=== PATIENT | male | born 1995 | race Caucasian/White ===

== ENCOUNTER 2021-12-03 15:47 | Outpatient (CLI) | payer BC, SELFPAY ==
--- NOTE | 2021-12-03 15:30 | DI.RAD_ITS ---
Exam(s) XR KNEE LT 3V AP,LAT,BYRON EXAM: XR KNEE LT 3V AP,LAT,BYRON CLINICAL HISTORY: left knee pain. TECHNIQUE: 2D digital imaging was performed. COMPARISON: CR XR KNEE RT 3V AP,LAT,BYRON from 12/03/2021 FINDINGS: Four views No evidence of fracture or obvious joint effusion. No significant joint space narrowing. There is s ome mild soft tissue swelling anterior to the patellar ligament. IMPRESSION: DATA REPOSITORY: RADIATION DOSE DELIVERED:
--- NOTE | 2021-12-03 15:30 | DI.RAD_ITS ---
Exam(s) XR KNEE RT 3V AP,LAT,BYRON EXAM: XR KNEE RT 3V AP,LAT,BYRON CLINICAL HISTORY: right knee pain. TECHNIQUE: 2D digital imaging was performed. COMPARISON: No exams were available for comparison FINDINGS: Four views: No evidence of fracture or joint effusion. No joint space narrowing. No osteophytes. Bone density normal. No osseous lesions. IMPRESSION: No significant findings. DATA REPOSITORY: RADIATION DOSE DELIVERED:
== END 2021-12-03 15:48 | disposition home or self-care (01) ==
LOC: DIORS 15:47
PROVIDERS: PCP Nurse Practitioner; Referring Provider Nurse Practitioner; Visit Provider Student in an Organized Health Care Education/Training Program
DX: M25.561 Pain in right knee (principal); M25.562 Pain in left knee; R22.42 Localized swelling, mass and lump, left lower limb
CPT/HCPCS: 73562

== ENCOUNTER → 2021-12-31 02:03 | Outpatient (CLI) | payer BC, SELFPAY ==
--- NOTE | 2021-12-31 06:45 | DI.MRI_ITS ---
Exam(s) MR LOWER JOINT LT WO EXAM: MR LOWER JOINT LT WO CLINICAL HISTORY: Abnormal patellar bone growth,ANTERIOR PATELLAR EXOSTOSIS,INTERNAL DERANGE TECHNIQUE: Multiplanar multisequence MRI was performed.. COMPARISON: CR XR KNEE LT 3V AP,LAT,BYRON from 12/03/2021 CR XR KNEE RT 3V AP,LAT,BYRON from 12/03/2021 FINDINGS: MR examination of the knee was performed according to the usual protocol. There is no significant knee joint effusion. No significant bony signal abnormality seen. Medial tibiofemoral joint: The articular cartilage of the femur and tibia appears well maintained. T he meniscus and attachments appear intact. The medial collateral ligament appears intact. No l d rn omedial corner injury seen. Lateral tibiofemoral joint: The articular cartilage of the femur and tibia appears well maintained. The meniscus and attachments appear intact. The lateral collateral ligament complex and posterolater al corner structures appear intact. Patellofemoral joint and extensor mechanism: The articular cartilage of the patellofemoral joint appe ars intact. The superior and inferior patellar fat pads appear normal with no signal abnormality. There is prominent inferior patellar enthesophyte with associated thickening and abnormal signal of t he patellar tendon and abnormal signal at the enthesophyte and to lesser degree in overlying soft tis sues. Note is also made of abnormal signal and mild thickening in the quadriceps attachment on the p atella.. The medial and lateral retinacula appear intact. Cruciate ligaments: Cruciate ligaments and attachments appear normal with no evidence of a tear. Tibiofibular joint: No specific abnormality involving the tibiofibular joint. IMPRESSION: Prominent inferior patellar enthesophyte with associated patellar tendinitis. No evidence patellar t endon rupture.. DATA REPOSITORY:
== END ==
PROVIDERS: PCP Nurse Practitioner; Visit Provider Student in an Organized Health Care Education/Training Program
DX: M76.52 Patellar tendinitis, left knee
CPT/HCPCS: 73721

== ENCOUNTER 2022-02-19 11:28 | Day surgery (SDC) | payer BC, SELFPAY ==
[2022-02-19] VITALS (7 sets, daily range): BP systolic 116–136; BP diastolic 46–99; PULSE 57–79; RESP 16–22; TEMP 36.5–37.1; O2SAT 95–99; BMI 37.0
[2022-02-19] MEDS: Lactated Ringers 1,000 ML 30 ML IV (12:00)
--- NOTE | 2022-02-19 13:05 | W.ANESPRE ---
General Info Date of Service Date Performed: 02/19/22 Height: 5 ft 11 in Weight: 120.3 kg Body Mass Index (BMI): 37.0 Surgical Procedure: Operation Date: 02/19/22 12:40 Proposed Procedure Side Surgeon p Patella Exostosis Excision, Possible Knee Patellar Tendon Repair Left Willy Culp MD Meds Allergies and Home Medications Allergies Allergy/AdvReac Type Severity Reaction Status Date / Time No Known Allergies Allergy Verified 01/07/22 08:33 Home Medication Medication Instructions Recorded ibuprofen 200 mg tablet 200 mg PO Q6H PRN 12/03/21 Current Visit Medications: Current Medications Generic Name Dose Route Start Last Admin Trade Name Freq PRN Reason Stop Dose Admin Ringer's Solution 1,000 mls @ 30 mls/hr 02/19/22 06:00 02/19/22 12:00 IV 03/20/22 23:59 30 mls/hr INFUSION KARLEY Administration Cefazolin Sodium/Dextrose 2 gm in 50 mls @ 100 mls/hr 02/19/22 06:00 Ancef Duplex IVPB 02/19/22 16:00 PREOP KARLEY IV Miscellaneous Supplies 1 each 02/19/22 06:00 Iv Access IV 03/20/22 23:59 DIRECTED KARLEY Oxycodone HCl 0 mg 02/19/22 07:16 Oxycodone 5 Mg Tab PO Q3H PRN PRN Pain Sodium Chloride 0 ml 02/19/22 06:00 Normal Saline Flush 10 Ml Syr IV 03/20/22 23:59 PRN PRN Sodium Chloride 0 ml 02/19/22 06:00 Normal Saline 10 Ml Vial IJ 03/20/22 23:59 DIRECTED PRN Sterile Water 0 ml 02/19/22 06:00 Water,Injection,Sterile 10 Ml Vial IJ 03/20/22 23:59 DIRECTED PRN PFSH Active Problems Active Problems: Problem Status Onset Code 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 Tobacco Smoking/Tobacco Use Status: Never Alcohol Alcohol Intake: current Alcohol intake frequency: a few times a month Alcohol type: beer and hard liquor Substance Use Substance use: Occasionally Substance use type: marijuana Details: Cannabis 2x's q night. Vital Signs and Lab Results Vital Signs Most Recent Vital Signs in EMR: Most Recent Vital Signs Temp Pulse Resp BP Pulse Ox 37.1 C 79 18 136/99 H 97 02/19/22 11:34 02/19/22 11:34 02/19/22 11:34 02/19/22 11:34 02/19/22 11:34 Lab Results Blood Type / Crossmatch: No Data to Display Complete Blood Count: No Data to Display Complete Metabolic Panel: No Data to Display Liver Function Panel: No Data to Display Coagulation Panel: No Data to Display Cardiac Panel: No Data to Display Arterial Blood Gas: No Data to Display Venous Blood Gas: No Data to Display Pancreas Panel: No Data to Display Thyroid Panel: No Data to Display Infectious Disease: No Data to Display Blood Cultures: No Data to Display Toxicology Panel: No Data to Display Anesthesia Assessment and Plan Anesthesia History Personal History: No History of Anesthesia Complications Family History: No Family History of Anesthesia Complications Exercise Tolerance Exercise Tolerance: Metabolic Equivalents>4 Pertinent Negatives Pertinent Negatives: No Symptoms of GERD, No Major Cardiovascular Symptoms or Complaints and No Major Pulmonary Symptoms or Complaints Cardiac & Pulmonary Exam Cardiac Exam: Normal S1/S2 Heart Sounds Pulmonary Exam: Clear Bilateral Breath Sounds Implantable Cardiac Device Does patient have a Pacemaker or an ICD?: No Airway Exam Known Difficult Airway: No Mallampati Class: 1 Mouth Opening: Normal (> 3cm) Thyromental Distance: Greater than 3 cm Neck Range of Motion: Full ROM Neck Circumference: Normal Teeth Condition: Normal Dentition ASA Classification ASA Score: ASA 2 Emergency Case?: No NPO Status NPO Status: NPO Clears >2 hours, Solids >8 hours Anesthesia Plan Resuscitation Status: Full Code Anesthesia Technique: General Anesthesia Airway Planned: LMA Monitors Used: Standard Monitors
[2022-02-19] MEDS: ceFAZolin 2 GM/50 ML BAG IVPB (13:53)
--- NOTE | 2022-02-19 14:00 | ROE_ITS ---
Date of service: 02/19/22 Time of Service: 16:30 Operative Note Operative Note DATE OF PROCEDURE: 02/19/22 PRE-OP DIAGNOSIS: Left knee symptomatic patellar exostosis POST-OP DIAGNOSIS: same PROCEDURE: Left knee excision patellar exostosis, CPT #44218 SURGEON: Willy Culp [employer]ER: None None ANESTHESIA TYPE: Local By Surgeon and General LMA/ETT Refer to Anesthesia Record ESTIMATED BLOOD LOSS: 3 COMPLICATIONS: None Patient was transported to: PACU Patient's condition: stable Indications: Please see complete medical record for details. Procedure Description: In the operating room, general anesthesia was induced. The patient was positioned supine on the operating room table. All bony prominences were well- padded. Preoperative antibiotics were administered. The left knee was prepped and draped in the usual sterile fashion. The correct patient, procedure, and side of the procedure were all verified prior to incision. The obvious bony anterior and inferior patellar exostosis was palpated. A small longitudinal approach was pretty injected with 0.5% bupivacaine with epinephrine. The incision was made through the skin down to the prepatellar bursa which was removed over the area of obvious bony prominence with a rongeur. An elevator was used to raise periosteum around the margins of the lesion. Distally a small amount of most anterior expansion patellar tendon fibers were split and elevated as well. A rongeur was used to remove the majority of the bony prominence. A combination of rongeur, elevator, and rasp were then used to thoroughly smooth the lesion bed and remove any additional prominence. There was no significant patellar tendon involvement. The site was copiously irrigated normal saline. The patellar tendon few fibers were repaired using 0 Vicryl. 2-0 Monocryl was used to close subcutaneous tissue. 3-0 Monocryl running skin followed by skin glue and Mepilex bandage. A gentle compressive Taj bandage was applied about the knee The patient awoke from anesthesia without complication and was transferred to the recovery room in a stable condition.
[2022-02-19] MEDS: Bupivacaine 0.5% Pres-Free W/EPI 30 ML VIAL (14:13)
--- NOTE | 2022-02-19 15:01 | W.ANESPOSTOP ---
Postoperative Evaluation Date, Time and Location Date Performed: 02/19/22 Time Performed: 15:01 Patient Location: PACU Vital Signs Most Recent Imported Vital Signs: Most Recent Vital Signs Temp Pulse Resp BP Pulse Ox 36.5 C 61 22 135/49 L 97 02/19/22 14:57 02/19/22 14:57 02/19/22 14:57 02/19/22 14:57 02/19/22 14:57 Pain Score Most Recent Pain Score: Most Recent Pain Score Pain Level 0 02/19/22 11:34 Assessment Mental Status: Awake (Alert & Oriented to Patient Baseline) Airway and Respiratory Function: Patent airway with normal (patient baseline) respiratory exam Cardiovascular Function: Hemodynamically Stable Hydration Status: Adequately Hydrated Nausea & Vomiting: No Nausea or Vomiting Pain: Pain is tolerable per patient Peripheral Nerve Block: Patient did not receive a nerve block
--- NOTE | 2022-02-19 16:00 | PDOC.DSDIS_ITS ---
Date of service: 02/19/22 Time of Service: 16:00 Discharge Plan Disposition Patient Disposition: HOME Condition: Good Discharge Details Reason For Visit: Right knee surgery Attending Provider: Willy Culp Primary Care Provider: None,None Home Meds and New Rx's Prescriptions: New aspirin 81 mg tablet,delayed release (DR/EC) 81 mg PO DAILY 7 Days Qty: 7 0RF naproxen 250 mg tablet 250 - 500 mg PO BID PRNQty: 30 0RF Rx Instructions: take with a meal oxycodone 5 mg tablet 5 - 10 mg PO Q4H MDD 30 mg PRN (Reason: moderate to severe pain) Qty: 12 0RF Discontinued ibuprofen 200 mg tablet 200 mg PO Q6H PRN Discharge Instructions Additional Instructions: Surgery: Left knee excision of patellar exostosis Activity: Weightbearing as tolerated. Advance range of motion as comfort all ows. Avoid kneeling for 6-8 weeks. Prescriptions: Aspirin 81 mg take 1 daily to prevent a blood clot for 7 days Naproxen 250 mg take 1-2 every 12 hours with a meal as needed for moderate pain Oxycodone 5 mg take 1-2 every 4-6 hours as needed for severe pain You may use qbyz-lyh-yyrlkdg Tylenol (acetaminophen) as needed for mild pain. These pain medications may be taken all at once or in different combinations as needed. Also, recommend Colace (docusate) as a stool softener as surgery and pain medicine cause constipation. You may try mchc-tyu-xjnfoly diphenhydramine (Benadryl) 25-50 mg nightly as a sleep aid Dressings: Leave dressing in place for 5 days. May then remove and leave open to air or cover incisions with Band-Aids. May shower after 7 days. Follow-up: 10-[address] Culp You may take off the leg compression stockings this evening at home. You may also leave them on a few days longer if you have a history of leg swelling or edema. Let us know right away if you develop any redness, drainage, fevers, chest pain, or trouble breathing. Do not drink alcohol or drive for at least 24 hours after anesthesia. Please call the office during business hours with any questions or concerns. DS: Diagnosis Discharge Diagnosis (1) Exostosis of left femur: Status: Acute
== END 2022-02-19 11:29 | disposition home or self-care (01) ==
PROVIDERS: Visit Provider Student in an Organized Health Care Education/Training Program
PROC: (CPT 27380; principal; 2022-02-19 12:30)
DX: M76.892 Other specified enthesopathies of left lower limb, excluding foot (principal)
CPT/HCPCS: 27350; J0690; J1100; J1885; J2250; J2405

== ENCOUNTER 2023-05-01 15:42 | Emergency (ER) | payer BC, SELFPAY ==
--- NOTE | 2023-05-01 15:49 | W.ED.GENAD ---
HPI General Mode of arrival: ambulatory. Date/Time Provider Initiated Documentation: 05/01/23 15:42. Limitations to Documentation: no limitations. Information obtained by: patient and RN notes reviewed. History of Present Illness 27 year old M presents to the emergency department with the chief complaint of hives/rash, described as moderate, Patient started experiencing this hour(s) (8) and it has been constant. No relieving factors improve symptom(s), No exacerbating factors reported . Patient did receive the following treatments prior to arrival, other (Antihistamine) Related Data Home Medications Medication Instructions Recorded Confirmed cetirizine 10 mg capsule (Zyrtec) 10 mg PO DAILY #7 caps 05/01/23 famotidine 40 mg tablet (Pepcid) 40 mg PO DAILY #4 tabs 05/01/23 ibuprofen 200 mg capsule 200 mg PO TID-QID PRN 05/01/23 05/01/23 prednisone 20 mg tablet 40 mg (2 x 20 mg) PO DAILY #8 tabs 05/01/23 Previous Rx's Medication Instructions Recorded cetirizine 10 mg capsule (Zyrtec) 10 mg PO DAILY #7 caps 05/01/23 famotidine 40 mg tablet (Pepcid) 40 mg PO DAILY #4 tabs 05/01/23 prednisone 20 mg tablet 40 mg (2 x 20 mg) PO DAILY #8 tabs 05/01/23 Allergies Allergy/AdvReac Type Severity Reaction Status Date / Time No Known Allergies Allergy Verified 05/01/23 15:52 General Stated Complaint: RashLesion AIDEN: 4 Review of Systems Constitutional Constitutional: Denies chills and Denies fever(s) ENT Ears, Nose, Mouth, and Throat: Denies otalgia, Denies lip swelling, Denies mouth lesions, Reports nasal congestion, Reports post nasal drip, Reports sore throat, Denies throat swelling and Denies tongue swelling Cardiovascular Cardiovascular: Denies dyspnea Respiratory Respiratory: Denies dyspnea and Denies wheezing Gastrointestinal Gastrointestinal: Denies nausea and Denies vomiting Integumentary/Breasts Skin/Breast: Reports as per HPI, Reports pruritus, Reports erythema and Reports rash Allergic/Immunologic Allergic/Immunologic: Denies lip swelling, Denies throat swelling, Denies tongue swelling and Denies wheezing Exam Const General: cooperative and comfortable Orientation: alert and awake [facility] Head: normal to inspection, normocephalic and atraumatic Ears: hearing grossly normal bilaterally, external ears normal and TM's normal bilaterally General nose exam: external nose normal Face and sinus: normal facial exam Mouth: oral mucosae normal, lip normal, tongue normal and no audible dysphonia Throat: posterior oropharynx normal, tonsils normal and uvula midline Resp Effort & Inspection: normal respiratory effort and able to speak in complete sentences Auscultation: clear to auscultation bilaterally Cardio Rate: regular rate Rhythm: regular rhythm Heart Sounds: S1 normal and S2 normal Skin Rashes: rashes noted maculopapular rash bilateral multiple locations Medical Decision Making Patient presenting to the emergency department for chief complaint of rash. Patient reports this morning he woke up with a itchy rash that seem to spread throughout the day. Patient does state 3 days ago he started having mild cold symptoms with a stuffy nose, sore throat, and postnasal drainage. He has taken sqeq-kwc-biqphfy NyQuil for this but denies any other new medications soaps lotions clothing or environmental changes. He does state he has taken NyQuil in the past and never had any similar reaction. Prior to arrival he did take an vgyh-rrz-qodypdt antihistamine which he is unsure which one it was. Patient has no contributing past medical history and no known allergies. Physical exam shows normal respiratory and HEENT exam, no plantar palmar or oral rash, no petechiae, macular papular diffuse rash noted mostly on superior aspect of trunk and upper thighs. There is some noted on extremities outside of that area though. Suspect viral exanthem given recent URI type symptoms that were mild. Patient was antigen tested for COVID and influenza which were negative. Do not feel that any further workup is needed at this time. Will recommend continuing antihistamines including Pepcid, and will place patient on oral steroid burst. Given no signs of anaphylaxis or other concerning features to rash will discharge patient with clear instructions to return for new or worsening of condition. After discussion of diagnosis and plan of care patient has no further needs, questions, or concerns and states clear understanding to return to the emergency department for any worsening symptoms. This documentation was generated using [facility] system, please disregard any oddities of phrase or misspellings. Lab Data Lab results reviewed: Yes I reviewed the patient's lab results. Quality:[facility] Health Related Social Needs: No Data to Display PFSH All Active Problems (Updated 05/01/23 @ 16:16 by Marcellus Alves NP) Viral exanthem (Acute) Exostosis of left femur (Acute) Patellar tendinitis, right knee (Acute) Social History Smoking/Tobacco Use Status: Never Smoking risk assessment performed?: Yes Alcohol Intake: current Alcohol Intake frequency: a few times a month Alcohol type: beer and hard liquor Drug use: Occasionally Substance use type: marijuana Details: Cannabis 2x's q night. Housing: house Current gender identity: male Do you feel safe at home: Yes Do you feel safe in your relationship?: Yes Discharge Plan Disposition Patient Disposition: Home Discharge Details Clinical Impression: Viral exanthem Primary Care Provider: None,None ED Provider: Marcellus Alves Home Meds and New Rx's Prescriptions: New prednisone 20 mg tablet 40 mg PO DAILY Qty: 8 0RF famotidine [Pepcid] 40 mg tablet 40 mg PO DAILY Qty: 4 0RF Zyrtec 10 mg capsule 10 mg PO DAILY Qty: 7 0RF No Action ibuprofen 200 mg capsule 200 mg PO TID-QID PRN Discharge Instructions Instructions: Acute Rash (ED) Additional Instructions: As discussed return to the emergency department for any new or significant worsening of your symptoms including any difficulty breathing swallowing or oral involvement of your rash. You may continue to use vbwh-wno-jncbktt Benadryl along with recommended medications as needed for itching or symptoms. If not improving please follow-up with local urgent care or primary care provider Referrals: Primary Care Provider [Outside] - 5 days (If not improving) Discharge Data Discharge Date/Time-TO BE ENTERED AT DEPARTURE: 05/01/23 16:38
[2023-05-01 15:53] VITALS: BP 151/69; PULSE 69; RESP 18; TEMP 37.2; O2SAT 98
[2023-05-01] MEDS: predniSONE 20 MG TAB 60 MG PO (16:19)
[2023-05-01] MEDS: Famotidine 20 MG TAB 40 MG PO (16:20)
== END 2023-05-01 16:38 | disposition home or self-care (01) ==
PROVIDERS: Emergency Provider Nurse Practitioner Family
DX: L50.9 Urticaria, unspecified (principal); Z11.52 Encounter for screening for COVID-19
CPT/HCPCS: 87426; 99283; 99284; J7512

== ENCOUNTER 2024-02-23 11:18 | Emergency (ER) | payer BC, SELFPAY ==
[2024-02-23 11:26] VITALS: BP 151/90; PULSE 58; RESP 20; TEMP 36.5; O2SAT 98
--- NOTE | 2024-02-23 13:04 | DI.RAD_ITS ---
Exam(s) XR WRIST RT COMPLETE EXAM: XR WRIST RT COMPLETE CLINICAL HISTORY: pain right wrist post fall. TECHNIQUE: 2D digital imaging was performed. COMPARISON: No exams were available for comparison FINDINGS: 3 views No evidence of fracture or dislocation nor significant ulnar variance. Bone density normal. No osse ous lesions. No erosions. No radiopaque foreign bodies. Scaphoid and scapholunate distance are nor mal. IMPRESSION: No significant osseous findings in the right wrist. DATA REPOSITORY: RADIATION DOSE DELIVERED:
[2024-02-23 13:44] VITALS: BP 146/85; PULSE 63; RESP 14; TEMP 36.5; O2SAT 99
--- NOTE | 2024-02-24 08:30 | ED.GENADUL_ITS ---
Discharge Plan Disposition Patient Disposition: Home Condition: Stable Discharge Details Clinical Impression: Muscle strain of right wrist Primary Care Provider: EVE MARCUS ED Provider: Jada Mccord Home Meds and New Rx's Prescriptions: Continued ibuprofen 200 mg capsule 200 mg PO TID-QID PRN prednisone 20 mg tablet 40 mg PO DAILY Qty: 8 0RF famotidine [Pepcid] 40 mg tablet 40 mg PO DAILY Qty: 4 0RF Zyrtec 10 mg capsule 10 mg PO DAILY Qty: 7 0RF Discharge Instructions Instructions: Muscle Strain (DC) Additional Instructions: Take ibuprofen and Tylenol as needed for pain, use your splint for the next several days for support and to allow for healing Use of right wrist as tolerated Return earlier should you have new or worsening complaints Referrals: EVE MARCUS [Primary Care Provider] - Discharge Data Discharge Date/Time-TO BE ENTERED AT DEPARTURE: 02/23/24 13:46 HPI General Date/Time Provider Initiated Documentation: 02/23/24 12:06 . HPI Narrative: This 28-year-old male presents with fall onto right wrist yesterday playing basketball. Denies any additional injuries. Pain with range of motion of wrist denies any tenderness to right elbow or additional injuries associated. Related Data Home Medications ?Medication ?Instructions ?Recorded ?Confirmed cetirizine 10 mg capsule (Zyrtec) 10 mg PO DAILY #7 caps 05/01/23 02/23/24 famotidine 40 mg tablet (Pepcid) 40 mg PO DAILY #4 tabs 05/01/23 02/23/24 ibuprofen 200 mg capsule 200 mg PO TID-QID PRN 05/01/23 02/23/24 prednisone 20 mg tablet 40 mg (2 x 20 mg) PO DAILY #8 tabs 05/01/23 02/23/24 Previous Rx's ?Medication ?Instructions ?Recorded cetirizine 10 mg capsule (Zyrtec) 10 mg PO DAILY #7 caps 05/01/23 famotidine 40 mg tablet (Pepcid) 40 mg PO DAILY #4 tabs 05/01/23 prednisone 20 mg tablet 40 mg (2 x 20 mg) PO DAILY #8 tabs 05/01/23 Allergies Allergy/AdvReac Type Severity Reaction Status Date / Time No Known Allergies Allergy Verified 02/23/24 11:31 General Stated Complaint: Orthopedic AIDEN: 4 Exam Narrative Exam Narrative: Right wrist, mild diffuse tenderness no focal tenderness, neurovascularly intact, no tenderness to digits forearm or elbow appreciated Course Vital Signs Vital signs: Vital Signs Temperature 36.5 C 02/23/24 11:26 Pulse 58 L 02/23/24 11:26 Respiratory Rate 20 02/23/24 11:26 Blood Pressure 151/90 H 02/23/24 11:26 Pulse Oximetry 98 02/23/24 11:26 Temperature 36.5 C 02/23/24 13:44 Temperature Source Oral 02/23/24 11:26 Pulse 63 02/23/24 13:44 Respiratory Rate 14 02/23/24 13:44 Respiratory Effort Normal 02/23/24 11:30 Blood Pressure 146/85 H 02/23/24 13:44 Blood Pressure Position Sitting 02/23/24 11:26 Pulse Oximetry 99 02/23/24 13:44 Oxygen Delivery Method Room Air 02/23/24 11:26 Oxygen Flow Rate 0 02/23/24 11:26 Pain Level 0 02/23/24 13:44 Medical Decision Making 28-year-old male presenting with right wrist pain. Right wrist with no evidence of fracture per radiology interpretation my review, neurovascularly intact, no tenderness to right elbow. Patient has own wrist splint, encouraged to wear it for supportive care as needed to be reevaluated in 1 week with persistent sympt oms. Quality:SDOH Health Related Social Needs: No Data to Display PFSH All Active Problems (Updated 02/23/24 @ 13:25 by CATHY Rhoades) Muscle strain of right wrist (Acute) Exostosis of left femur (Acute) Patellar tendinitis, right knee (Acute) Social History Smoking/Tobacco Use Status: Never Smoking risk assessment performed?: Yes Alcohol Intake: current Alcohol Intake frequency: a few times a month Alcohol type: beer and hard liquor Drug use: Occasionally Substance use type: marijuana Details: Cannabis 2x's q night. Housing: house Current gender identity: male Do you feel safe at home: Yes Do you feel safe in your relationship?: Yes PAWSS Have you Been Recently Intoxicated or Drunk Within the Last 30 days?: No Have you Ever Experienced Previous Episodes of Alcohol Withdrawal?: No Have you ever Experienced Withdrawal Seizures?: No Have you ever Experienced Delirium Tremens(DT)s?: No Have you ever undergone Alcohol Rehabilitation Treatment (i.e, inpt ot outpatient treatment programs)?: No Have you ever Experienced Blackouts?: No Have you ever Combined Alcohol with other Downers within the last 90 days?: No Have you ever Combined Alcohol with any other Substance of Abuse during the last 90 days?: No Positive Blood Alcohol level on Presentation? [PCS.BAL]: No Evidence of Increased Autonomic Activity (i.e. HR>120, tremor, sweating, agitation, nausea)?: No Result: 0
== END 2024-02-23 13:46 | disposition home or self-care (01) ==
PROVIDERS: Emergency Provider Physician Assistant; PCP Nurse Practitioner
DX: S66.911A Strain of unspecified muscle, fascia and tendon at wrist and hand level, right hand, initial encounter (principal); W18.39XA Other fall on same level, initial encounter; Y93.67 Activity, basketball; Y92.310 Basketball court as the place of occurrence of the external cause
CPT/HCPCS: 99283; 73110

== ENCOUNTER 2024-06-27 17:34 | Outpatient (REF) | payer BC, SELFPAY ==
[2024-06-27 21:43] LABS: Abs Immature Grans 0.02 10^3/uL (0.0-0.06); Absolute Basophil Count 0.03 10^3/uL (0.0-0.2); Absolute Eosinophil Count 0.18 10^3/uL (0.0-0.7); Absolute Lymphocyte Count 1.73 10^3/uL (1.2-3.4); Absolute Monocyte Count 0.47 10^3/uL (0.1-0.8); Absolute Neutrophil Count 3.54 10^3/uL (1.2-6.7); Basophils % 0.5 %; HCT 43.7 % (40.0-50.0); HGB 14.6 g/dL (13.5-17.5); Immature Grans % 0.3 %; MCH 31.3 pg (27.0-33.0); MCHC 33.4 % (32.0-36.0); MCV 94 fL (80-95); MPV 10.1 fL (8.0-11.0); Monocytes % 7.9 %; Neutrophils % 59.3 %; Platelet Count 195 10^3/uL (130-400); RBC 4.67 10^6/uL (4.36-5.78); RDW 11.9 % (11.8-14.1); RDW-SD 40.9 fL; WBC 5.97 10^3/uL (4.4-10.8)
[2024-06-27 22:57] LABS: ALT 40 U/L (16-63); AST 26 U/L (15-37); Albumin 3.8 g/dL (3.4-5.0); Alkaline Phosphatase 57 U/L (46-116); Anion Gap 9.8 mmol/L (3-11); BUN 21 mg/dL (7-18); Bilirubin, Total 0.2 mg/dL (0.2-1.0); CO2 27.2 mmol/L (21.0-32.0); CREATININE 0.9 mg/dL (0.70-1.30); Calcium 8.8 mg/dL (8.5-10.1); Calculated LDL 41 mg/dL (<100); Chloride 105 mmol/L (98-107); Cholesterol 104 mg/dL (<200); Estimated GFR 119.31 (mL/min/1.73m2); Glucose 84 mg/dL (74-106); HDL Cholesterol 53 mg/dL (>or=40); Sodium 142 mmol/L (136-145); TSH (W/Ref FT4) 0.78 uIU/mL (0.36-3.74); Total Protein 6.5 g/dL (6.4-8.2); Triglyceride 54 mg/dL (<150)
== END 2024-06-27 17:35 | disposition home or self-care (01) ==
LOC: NCHCN 17:34
PROVIDERS: PCP Nurse Practitioner; Visit Provider Family Medicine
DX: Z13.1 Encounter for screening for diabetes mellitus (principal); Z86.2 Personal history of diseases of the blood and blood-forming organs and certain disorders involving the immune mechanism; Z00.00 Encounter for general adult medical examination without abnormal findings
CPT/HCPCS: 80053; 80061; 83036; 84443; 85025

== ENCOUNTER 2024-09-04 02:36 | Outpatient (CLI) | payer BC, SELFPAY ==
--- NOTE | 2024-09-04 | DI.RAD_ITS ---
Exam(s) XR WRIST RT COMPLETE EXAM: XR WRIST RT COMPLETE CLINICAL HISTORY: Pain in rt wrist with extension x 6 mos, M25.531. TECHNIQUE: 2D digital imaging was performed of the right wrist. Views were obtained. Scaphoid, PA, lateral and oblique views were obtained. COMPARISON: CR XR WRIST RT COMPLETE from 02/23/2024 FINDINGS: BONES: On the PA view there is a faint lucency seen through the waist of the scaphoid. Artifact vers us nondisplaced fracture. No other evidence of a fracture seen. No bony destructive lesion is seen. JOINTS: The carpal bones are normally aligned. SOFT TISSUE: Normal. IMPRESSION: Question of a nondisplaced fracture through the waist of the scaphoid. Scaphoid view or CT scan of t he wrist is recommended for further evaluation. DATA REPOSITORY: RADIATION DOSE DELIVERED:
== END 2024-09-04 02:56 ==
PROVIDERS: PCP Nurse Practitioner; Visit Provider Family Medicine
DX: M25.531 Pain in right wrist (principal); R93.89 Abnormal findings on diagnostic imaging of other specified body structures
CPT/HCPCS: 73110

== ENCOUNTER 2024-11-07 08:25 | Emergency (ER) | payer BC, SELFPAY ==
[2024-11-07 08:30] VITALS: BP 145/93; PULSE 56; RESP 16; TEMP 36.4; O2SAT 98
--- NOTE | 2024-11-07 08:30 | DI.RAD_ITS ---
Exam(s) XR FOOT LT COMPLETE XR ANKLE LT COMPLETE EXAM: XR FOOT LT COMPLETE and XR ankle LT complete CLINICAL HISTORY: pain, injury. TECHNIQUE: 2D digital imaging was performed of the left ankle and foot. Six images were obtained. AP, oblique and lateral views were obtained. COMPARISON: There are no priors for comparison. FINDINGS: BONES: There is an acute transverse nondisplaced fracture at the proximal metadiaphyseal junction of the 5th metatarsal. No bony destructive lesion is seen. JOINTS: No dislocation present. There are moderate degenerative changes seen at the 1st MTP joint characterized by joint space narrowing and osteophytes. Mild degenerative changes are also seen at the interphalangeal joint of the great toe. The ankle is well maintained. SOFT TISSUE: There is a well corticated osseous density at the tip of the medial malleolus which is chronic. IMPRESSION: Acute nondisplaced fracture at the proximal metadiaphyseal junction of the 5th metatarsal. DATA REPOSITORY: RADIATION DOSE DELIVERED:
--- NOTE | 2024-11-07 08:34 | ED.GENADUL_ITS ---
Discharge Plan Disposition Patient Disposition: Home Condition: Stable Discharge Details Clinical Impression: Fracture of fifth metatarsal bone of left foot Primary Care Provider: EVE MARCUS ED Provider: Yazmin Berg Home Meds and New Rx's Prescriptions: No Action ibuprofen 200 mg capsule 200 mg PO TID-QID PRN Discharge Instructions Instructions: How to Use Crutches, Foot Fracture (DC), Walking Boot Referrals: Wallace Ybarra MD [ [facility] STAFF PHYSICIAN, Orthopaedic Surgical] Clinical Impression: Fracture of fifth metatarsal bone of left foot Discharge Data Discharge Physician: Yazmin Berg [facility] General Date/Time Provider Initiated Documentation: 11/07/24 08:30 . HPI Narrative: 28-year-old male presents for evaluation of left foot and ankle injury. He was running around bases on Wednesday and felt the ankle twist to the side. He has been having pain and swelling in his lateral ankle since that time. Denies any numbness or tingling. No other injuries. Related Data Home Medications ?Medication ?Instructions ?Recorded ?Confirmed ibuprofen 200 mg capsule 200 mg PO TID-QID PRN 11/07/24 Allergies Allergy/AdvReac Type Severity Reaction Status Date / Time No Known Allergies Allergy Verified 11/07/24 08:36 General AIDEN: 4 Review of Systems Narrative: Remainder of review of systems otherwise negative except for as noted in the HPI x 5. Exam Narrative Exam Narrative: General: non-toxic, no respiratory distress, comfortable HEENT: normocephalic, atraumatic, lids and lashes normal, PERRL, EOMI, anicteric sclera, no conjunctival injection, moist oral mucosa Musculoskeletal: Pain and swelling to left lateral malleolus, no pain over medial malleolus, Achilles intact, pain to palpation over distal 1st and 2nd metatarsals, 2+ dorsal pedal pulse, sensation tact, otherwise full range of motion of arms and legs, no tenderness to palpation. no clubbing, cyanosis, or edema Neurologic: appropriate for age, strength normal Psych: alert and oriented Skin: no petechiae, no lesions, warm and dry Medical Decision Making 28-year-old male presents for evaluation of pain to left ankle and foot after injury. At time of my evaluation he is neurologically intact. X-ray of left foot and ankle shows nondisplaced fracture of fifth metatarsal. Patient placed in walking boot and given crutches. He will be weightbearing as tolerated. He is referred to orthopedics for follow-up. He understands indications to return. 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 Housing: house Current gender identity: male Do you feel safe at home: Yes Do you feel safe in your relationship?: Yes
[2024-11-07 09:35] VITALS: BP 147/96; PULSE 65; RESP 15; O2SAT 99
== END 2024-11-07 09:52 | disposition home or self-care (01) ==
PROVIDERS: Emergency Provider Emergency Medicine Emergency Medical Services; PCP Nurse Practitioner
DX: S92.352A Displaced fracture of fifth metatarsal bone, left foot, initial encounter for closed fracture (principal); W18.49XA Other slipping, tripping and stumbling without falling, initial encounter
CPT/HCPCS: 99283 ×2; 29515; 28470; 28665; 73610; 73630

== ENCOUNTER 2024-11-15 07:18 | Day surgery (SDC) | payer BC, SELFPAY ==
[2024-11-15] VITALS (12 sets, daily range): BP systolic 103–135; BP diastolic 50–87; PULSE 45–66; RESP 10–20; TEMP 36.2–36.8; O2SAT 96–99; BMI 29.0
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
--- NOTE | 2024-11-15 07:29 | PDOC.DSDIS_ITS ---
Date of service: 11/15/24 Discharge Plan Disposition Patient Disposition: Home Condition: Good Discharge Details Reason For Visit: ORIF L Foot Fx Attending Provider: Wallace Ybarra Primary Care Provider: Everardo Rojas Home Meds and New Rx's Prescriptions: New acetaminophen 500 mg tablet 1,000 mg PO TID Qty: 90 3RF ibuprofen 600 mg tablet 600 mg PO TID PRNQty: 90 3RF oxycodone 5 mg tablet 5 mg PO Q8H MDD 15mg PRN (Reason: pain) Qty: 8 0RF aspirin 81 mg tablet,delayed release (DR/EC) 81 mg PO BID Qty: 28 0RF Continued ibuprofen 200 mg capsule 200 mg PO TID-QID PRN creatine monohydrate 5,000 mg powder in packet PO Discharge Instructions Additional Instructions: Foot ORIF Discharge Instructions Activity: You are NON WEIGHT BEARING. You should keep the leg elevated as much as possible. You may wiggle your toes and move your hip and knee. Dressings: You should keep your splint clean and dry. Do NOT get wet or dirty. If you have issues with your splint, please call the office at [phone] or the hospital after hours. Medications: - You should take Tylenol and Ibuprofen around the clock for baseline pain. - You have been prescribed a stronger narcotic for breakthrough pain. - You should take a Baby Aspirin (81mg) twice a day for blood clot prevention. Follow-up: 2 weeks Referrals: Wallace Ybarra MD [ [facility] STAFF PHYSICIAN, Orthopaedic Surgical] Equipment/Supplies: Non-Weight Bearing Crutches Activity:: Elevate Remove Dressings/Wound Care:: Do Not Remove Shower/Bathe:: Cover Diet:: As Tolerated Discharge Orders Discharge Orders: Discharge Order (Routine); Ordered 11/15/24 Ordered By: Doug Ling DS: Diagnosis Discharge Diagnosis (1) Mendoza fracture: Status: Acute (2) Fracture of fifth metatarsal bone of left foot: Status: Acute
[2024-11-15] MEDS: Acetaminophen 500 MG TAB 1000 MG PO (08:07)
[2024-11-15] MEDS: Celecoxib 200 MG CAP 400 MG PO (08:08)
[2024-11-15] MEDS: Lactated Ringers 1,000 ML 80 ML IV (08:20)
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
[2024-11-15] MEDS: ceFAZolin 2 GM/50 ML BAG IVPB (09:05)
--- NOTE | 2024-11-15 09:20 | W.PM.OP ---
Operative Note Operative Note PRE-OP DIAGNOSIS: Left 5th Metatarsal Fracture POST-OP DIAGNOSIS: same PROCEDURE: Open Treatment with Intamedullary Screw - LEFT 5th Metatarsal Fracture SURGEON: Wallace Ybarra CRYSTAL EVALUATOR: Doug Ling ANESTHESIA TYPE: Spinal Refer to Anesthesia Record ESTIMATED BLOOD LOSS: 20 TOURNIQUET TIME: 0 COMPLICATIONS: None Patient was transported to: PACU Patient's condition: stable Implants: [place] Ortholoc 5.5 x 45 mm notched screw Indications: Domo is a 28-year-old active male who suffered 1/5 metatarsal fracture, proximally, and the watershed zone exiting in the 4?5 joint space, Mendoza fracture. Due to the nature of this fracture risk of nonunion, I recommended intramedullary screw fixation. I discussed the tentacle details of the surgery. I reviewed the risk to include bleeding, infection, pain, stiffness, nonunion, nonunion, damage to nerves and vessels, damage to muscle tendons, hardware prominence, or failure. Despite these risk, he elects to proceed. Findings: There was a Mendoza fracture of the left tarsal transfixed with a single 5.5 mm [place] Ortholoc screw. Procedure Description: Domo was greeted in the preoperative holding area. The correct site was identified and marked. The consent was reviewed the patient and signed. History and physical was updated. He was taken to the operating room and spinal anesthetic was administered. He was then placed in the supine position on a regular operating table. A wedge was placed under his left side into a lazy lateral position. All other bony prominences were well-padded. The left leg was prepped with ChloraPrep and draped in standard fashion. Prophylactic and biotics established administered. A timeout was performed for safe surgery. Fluoroscopy was utilized to determine the appropriate angle approach for the metatarsal and starting point. This was completed the proposed incision site, present 2 to 3 cm proximal to the fifth metatarsal was marked in the skin. This area was anesthetized with 0.25% bupivacaine. Incision was then made through skin only. Blunt dissection was carried out with hemostat to the base of the fifth metatarsal. This was confirmed both by palpation and by the fluoroscopy. EXOS cath was created the 2 mm starting K wire was placed by hand down to the base of the metatarsal. This was confirmed to be in-plane with the metatarsal shaft in a high and inside position. It was then advanced. X-ray was utilized to confirm for positioning. Initial K wire direction slightly posterior this was angled anteriorly which seem to be down the middle of the metatarsal shaft on both AP, oblique, and lateral views. I then used the 5.5 mm cannula down to the base of the fifth metatarsal to protect soft tissues in this path. The drill was advanced into the midportion of the metatarsal shaft avoiding the curved section of the metatarsal shaft. A 4.5 mm tap was utilized with minimal chatter or resistance. Therefore, I went to 5.5 mm tap. This had excellent purchase in the bone. This was advanced into the midportion of the shaft and once again avoiding the curved portion of the fifth metatarsal shaft. This was then measured. A countersink was utilized. I then placed a 5.5 x 45 mm solid Ortholoc screw into the fifth metatarsal. This had excellent purchase throughout the course of the screw. It was advanced until resistance was obtained and compression was seen across the fracture. There is no malrotation or translation seen. There was excellent compression and resistance. The screw head was buried and the chamfer was aligned towards the cuboid. Final x-rays were obtained. The wound was irrigated. The bed of the wound was injected with 0.25% bupivacaine. Wound is closed with 3-0 nylon. This was dressed with Xeroform, 4 x 4, Webril. A short leg splint was applied. In the case all counts are correct. No complications were noted. Date of Procedure: 11/15/24
[2024-11-15] MEDS: Bupivacaine 0.25% Pres-Free W/EPI 30 ML VIAL (09:33)
--- NOTE | 2024-11-15 10:04 | DI.RAD_ITS ---
Exam(s) XR FOOT LT LIMITED EXAM: XR FOOT LT LIMITED CLINICAL HISTORY: ORIF/INTRAMEDULLERY SCREW 5TH METATARSEL LEFT FOOT TECHNIQUE: 2D and realtime digital imaging was performed. CONTRAST MATERIAL: Refer to procedure report. COMPARISON: CR XR FOOT LT COMPLETE from 11/07/2024 FINDINGS: Fluoroscopy was provided for Dr. Ybarra during the performance of a internal fixation of the 5th metatarsal fracture. Please refer to the procedure report for complete details. Ka,r=1.17 mGy IMPRESSION: RADIATION DOSE DELIVERED: 0.0 0.0 0
--- NOTE | 2024-11-15 11:58 | W.ANESPOSTOP ---
Postoperative Evaluation Date, Time and Location Date Performed: 11/15/24 Time Performed: 11:51 Patient Location: Day Surgery Unit Vital Signs Most Recent Imported Vital Signs: Most Recent Vital Signs Temp Pulse Resp BP Pulse Ox 36.6 C 48 L 16 119/67 99 11/15/24 11:21 11/15/24 11:21 11/15/24 11:21 11/15/24 11:21 11/15/24 11:21 Pain Score Most Recent Pain Score: Most Recent Pain Score Pain Level 0 11/15/24 11:21 Assessment Mental Status: Awake (Alert & Oriented to Patient Baseline) Airway and Respiratory Function: Patent airway with normal (patient baseline) respiratory exam Cardiovascular Function: Hemodynamically Stable Hydration Status: Adequately Hydrated Nausea & Vomiting: No Nausea or Vomiting Pain: Pt. Denies Any Pain Peripheral Nerve Block: Patient did not receive a nerve block
== END 2024-11-15 12:25 | disposition home or self-care (01) ==
PROVIDERS: PCP Family Medicine; Visit Provider Student in an Organized Health Care Education/Training Program
PROC: (CPT 28485; principal; 2024-11-15 09:30)
DX: S92.352A Displaced fracture of fifth metatarsal bone, left foot, initial encounter for closed fracture (principal); W01.0XXA Fall on same level from slipping, tripping and stumbling without subsequent striking against object, initial encounter; Y93.64 Activity, baseball
CPT/HCPCS: 28485; 76000; 73620; J0690; J1100; J2003; J2250; J2401; J2405; J2704

== ENCOUNTER 2024-11-27 11:11 | Outpatient (CLI) | payer BC, SELFPAY ==
--- NOTE | 2024-11-27 11:00 | DI.RAD_ITS ---
Exam(s) XR FOOT LT COMPLETE EXAM: XR FOOT LT COMPLETE CLINICAL HISTORY: 1ST POST OP S/P 5TH METATARSAL FX. TECHNIQUE: 2D digital imaging was performed of the left foot. Three images were obtained. AP, oblique and lateral views were obtained. COMPARISON: CR XR FOOT LT COMPLETE from 11/07/2024 XA XR FOOT LT LIMITED from 11/15/2024 FINDINGS: BONES: There is no change in alignment of the fracture involving the 5th metatarsal. The fracture line is still visualized. There is a partially threaded screw transfixing the fracture. No bony destructive lesion is seen. JOINTS: No dislocation present. There are mild degenerative changes seen at the 1st MTP joint. SOFT TISSUE: Normal. IMPRESSION: Stable alignment of the 5th meta tarsal fracture and orthopedic hardware. DATA REPOSITORY: RADIATION DOSE DELIVERED:
== END 2024-11-27 11:12 | disposition home or self-care (01) ==
LOC: DIORS 11:11
PROVIDERS: PCP Family Medicine; Visit Provider Student in an Organized Health Care Education/Training Program
DX: S92.352A Displaced fracture of fifth metatarsal bone, left foot, initial encounter for closed fracture (principal)
CPT/HCPCS: 73630

== ENCOUNTER 2024-12-22 09:38 | Outpatient (CLI) | payer BC, SELFPAY ==
--- NOTE | 2024-12-22 07:45 | DI.RAD_ITS ---
Exam(s) XR FOOT LT COMPLETE EXAM: XR FOOT LT COMPLETE CLINICAL HISTORY: F/U L TELLEZ FX. TECHNIQUE: 2D digital imaging was performed. Three images were obtained. AP, lateral and oblique views were obtained. COMPARISON: CR XR FOOT LT COMPLETE from 11/27/2024 FINDINGS: BONES: There are stable post operative changes in the 5th metatarsal present. There has been significant healing of the 5th metatarsal fracture. Portion of the fracture line is still visualized. No new fracture or dislocation. Small calcaneal spurs are present. JOINTS: The joint spaces are well maintained. Degenerative changes are seen at the 1st MTP joint characterized by joint space narrowing and osteophytes. SOFT TISSUE: Normal. IMPRESSION: Healing 5th metatarsal fracture. DATA REPOSITORY: RADIATION DOSE DELIVERED:
== END 2024-12-22 09:39 | disposition home or self-care (01) ==
LOC: DIORS 10:32
PROVIDERS: PCP Family Medicine; Visit Provider Physician Assistant
DX: S99.199A Other physeal fracture of unspecified metatarsal, initial encounter for closed fracture (principal)
CPT/HCPCS: 73630